=== PATIENT | female | born 1950 | race Caucasian/White ===

== ENCOUNTER 2019-03-23 11:33 | Emergency (ER) | payer MEDICARE, OTHER ==
[2019-03-23] MEDS ORDERED: predniSONE TAB* 20 MG PO ONE (12:26)
[2019-03-23] MEDS ORDERED: Albuterol/Ipratropium NEB.SOL* Albuterol 2.5 MG/Ipratropium 0.5 MG 3 ML INH ONE (12:26)
--- NOTE | 2019-03-23 12:26 | ED ---
Respiratory - HPI Summary HPI Summary: This patient is a 68 year old F presenting to ED with a chief complaint of sore throat that has developed into a cough with thick yellow mucus with a speck of blood since a week ago. She is visiting from [place]. The patient rates the pain 0/ 10 in severity. Symptoms aggravated by nothing. Symptoms alleviated by nothing. Patient reports YOUNGBLOOD, lightheadedness, SOB, pain on swallowing. Patient denies CP , N/V/D, fever. - History of Current Complaint Chief Complaint: EDUpperRespComplaint Stated Complaint: CHECK BREATHING PER PT Time Seen by Provider: 03/23/19 12:11 Hx Obtained From: Patient Onset/Duration: Gradual Onset, Lasting Weeks - 1 week, Still Present, Worse Since Timing: Constant Initial Severity: Mild Current Severity: Mild Pain Intensity: 0 Character: Cough (Productive), Dyspnea on Exertion Sputum Amount: Large Sputum Color: Yellow Aggravating Factor(s): Nothing Alleviating Factor(s): Nothing Associated Signs and Symptoms: Negative - CP, N/V/D, fever, SOB - Allergy/Home Medications Allergies/Adverse Reactions: Allergies Allergy/AdvReac Type Severity Reaction Status Date / Time No Known Allergies Allergy Verified 03/23/19 11:57 Home Medications: Home Medications Albuterol 2.5MG/3ML (0.083%)* [Ventolin 2.5 MG/3 ML NEB.EVANGELIST*] 2.5 mg INH Q4H PRN 03/23/19 [History Confirmed 03/23/19] Albuterol inh POWDER (NF) [Proair Respiclick] 2 puff INH Q4H PRN 03/23/19 [ History Confirmed 03/23/19] Aspirin [Aspirin EC] 81 mg PO DAILY 03/23/19 [History Confirmed 03/23/19] DULoxetine DR CAP* [Cymbalta CAP*] 20 mg PO DAILY 03/23/19 [History Confirmed ] Fluticasone/Vilanterol MDI(NF) [Breo Ellipta MDI (NF)] 1 puff INH DAILY [History Confirmed 03/23/19] Lisinopril/HCTZ (NF) [Zestoretic (NF)] 1 tab PO DAILY 03/23/19 [ History Confirmed 03/23/19] Loratadine [Claritin] 10 mg PO DAILY 03/23/19 [History Confirmed 03/23/19] Metoprolol Tartrate TAB* [Lopressor TAB*] 100 mg PO BID 03/23/19 [History Confirmed 03/23/19] Rosuvastatin Calcium [Crestor] 10 mg PO DAILY 03/23/19 [History Confirmed ] PMH/Surg Hx/FS Hx/Imm Hx Cardiovascular History: Reports: Hx Hypertension, Hx Supraventricular Ventricular Tachycardia Respiratory History: Reports: Hx Asthma - Surgical History Surgery Procedure, Year, and Place: cataracts, defibrillator, dental Infectious Disease History: No Infectious Disease History: Denies: Traveled Outside the US in Last 30 Days - Family History Known Family History: Positive: Hypertension, Other - lung CA, breast CA - Social History Alcohol Use: Weekly Hx Substance Use: No Substance Use Type: Reports: None Hx Tobacco Use: No Smoking Status (MU): Never Smoked Tobacco Review of Systems Negative: Fever ENT: Other - Pain on swallowing Positive: Sore Throat Positive: Shortness Of Breath, Cough - Wet Negative: Vomiting, Diarrhea, Nausea Neurological: Other - Lightheadedness Positive: Headache All Other Systems Reviewed And Are Negative: Yes Physical Exam - Summary Physical Exam Summary: GENERAL: Patient is a well-developed and nourished F who is lying comfortable in the stretcher. Patient is not in any acute respiratory distress. HEAD AND FACE: Normocephalic EYES: PERRLA, EOMI x 2. EARS: Hearing grossly intact. MOUTH: Oropharynx within normal limits. NECK: Supple, trachea is midline, no adenopathy, no JVD, no carotid bruit. CHEST: Symmetric, no tenderness at palpation LUNGS: Mild expiratory wheezing with rhonchi CVS: Regular rate and rhythm, S1 and S2 present, no murmurs or gallops appreciated. ABDOMEN: Soft, non-tender. Bowel sounds are normal. No abnormal abdominal pulsations. EXTREMITIES: Full ROM in all major joints, no edema, no cyanosis or clubbing. NEURO: Alert and oriented x 3. No acute neurological deficits. Speech is normal and follows commands. SKIN: Dry and warm Triage Information Reviewed: Yes Vital Signs On Initial Exam: Initial Vitals Temp Pulse Resp BP Pulse Ox 99.2 F 82 18 198/125 94 03/23/19 11:53 03/23/19 11:53 03/23/19 11:53 03/23/19 11:53 03/23/19 11:53 Vital Signs Reviewed: Yes Diagnostics - Vital Signs Vital Signs Temp Pulse Resp BP Pulse Ox 03/23/19 11:53 99.2 F 82 18 198/125 94 - Laboratory Result Diagrams: 03/23/19 12:21 03/23/19 12:21 Lab Statement: Any lab studies that have been ordered have been reviewed, and results considered in the medical decision making process. - Radiology CXR Radiology Interpretation Completed By: Radiologist Summary of Radiographic Findings: Calcified granuloma left lung base. Pacemaker leads are in place. Hyperinflated lung bowen. Dr. Moreau has reviewed this radiology report. Re-Evaluation - Re-Evaluation First Eval Re-Evaluation Time: 13:27 Comment: Discussed results with patient. Patient will be discharged home with dx of asthmatic exacerbation and calcified granuloma of left lung. Patient understands and agrees with this plan. Disposition - Course Course Of Treatment: This patient is a 68 year old F presenting to ED with a chief complaint of sore throat that has developed into a cough with thick yellow mucus with a speck of blood since a week ago. In the ED course, patient received Duoneb, Deltasone, Zithromax. Blood work obtained. CXR revealed calcified granuloma left lung base. Pacemaker leads are in place. Hyperinflated lung bowen. Patient will be discharged home with dx of asthmatic exacerbation and calcified granuloma of left lung. I discussed results with patient, and she reports feeling better. She is hemodynamically stable and safe for discharge. Strict return precautions given and she will otherwise follow up with her PCP. - Diagnoses Provider Diagnoses: Asthma exacerbation, Calcified granuloma of lung Discharge - Sign-Out/Discharge Documenting (check all that apply): Patient Departure - Discharge Patient Received Moderate/Deep Sedation with Procedure: No - Discharge Plan Condition: Stable Disposition: HOME Prescriptions: Azithromycin 500 mg PO DAILY #4 tablet predniSONE [Deltasone 20 MG TAB] 40 mg PO DAILY #8 tablet Patient Education Materials: Asthma (ED), How Your Lungs Work (ED) Referrals: [facility] [Outside] - 3 Days Additional Instructions: Use your Albuterol 3xdaily for the next two days. Follow up with your primary care physician in 1-3 days regarding your cough and calcified granuloma of the left lung. RETURN TO THE EMERGENCY DEPARTMENT FOR CHANGING OR WORSENING SYMPTOMS. - Billing Disposition and Condition Condition: STABLE Disposition: Home - Attestation Statements Document Initiated by Scribe: Yes Documenting Scribe: Neil Zavaleta Provider For Whom Steveibe is Documenting (Include Credential): Francisco J Moreau MD Scribe Attestation: INeil, scribed for Francisco J Moreau MD on 03/24/19 at 1047. Scribe Documentation Reviewed: Yes Provider Attestation: The documentation as recorded by the steveibNeil aguilera accurately reflects the service I personally performed and the decisions made by me, Francisco J Moreau MD Status of Scribe Document: Viewed
[2019-03-23] MEDS ORDERED: Azithromycin TAB* 250 MG PO ONE (12:27)
[2019-03-23 12:28] LABS: ABS Eosinophils 0.1 10^3/ul (0-0.6); ABS Lymphocytes 0.9 10^3/ul (1.0-4.8); ABS Monocytes 0.7 10^3/ul (0-0.8); ABS Neutrophils 3.8 10^3/ul (1.5-7.7); Eosinophil % 2.2 %; Hematocrit 43 % (35-47); Hemoglobin 14.8 g/dL (12.0-16.0); Lymphocyte % 15.9 %; Mean Corpuscular HGB Conc 34 g/dL (31-36); Mean Corpuscular Hemoglobin 28 pg (27-31); Mean Corpuscular Volume 84 fL (80-97); Mean Platelet Volume 7.2 fL (7.4-10.4); Platelet Count 149 10^3/uL (150-450); Red Cell Distribution Width 15 % (10-15); White Blood Count 5.6 10^3/uL (3.5-10.8)
[2019-03-23 12:46] LABS: Rapid Strep Molecular Negative (Negative)
[2019-03-23 12:46] LABS: Albumin 4.4 g/dL (3.2-5.2); Albumin/Globulin Ratio 1.6 (1-3); BUN/Creatinine Ratio 15.8 (8-20); C Reactive Protein 3.71 mg/L (<8.01); Calcium 9.7 mg/dL (8.6-10.3); EGFR African American 70.8 (>60); EGFR Non-African American 58.5 (>60); Globulin 2.7 g/dL (2-4); Potassium 3.6 mmol/L (3.5-5.0); Total Bilirubin 1.8 mg/dL (0.2-1.0); Total Protein 7.1 g/dL (6.4-8.9)
[2019-03-23 14:10] VITALS: BP 154/78
== END 2019-03-23 14:09 | disposition home or self-care (01) ==
LOC: ED 11:33
DX: J45.901 Unspecified asthma with (acute) exacerbation (principal); J84.10 Pulmonary fibrosis, unspecified; R51 Headache; R42 Dizziness and giddiness; R07.0 Pain in throat; I10 Essential (primary) hypertension; Z79.82 Long term (current) use of aspirin; Z95.810 Presence of automatic (implantable) cardiac defibrillator
CPT/HCPCS: 36415; 71046; 80053; 83605; 83690; 85025; 86140; 87040; 87651; 99283; A9270-GY; J7512

== ENCOUNTER 2019-03-25 11:23 | Observation (INO) | payer MEDICARE ==
[2019-03-25] MEDS ORDERED: Albuterol/Ipratropium NEB.SOL* Albuterol 2.5 MG/Ipratropium 0.5 MG 3 ML INH ONE ×2 (11:58→12:54)
[2019-03-25] MEDS ORDERED: Magnesium Sulfate 2 GM IV* 2 GM/50 ML BAG IVPB ONE (12:54)
[2019-03-25] MEDS ORDERED: methylPREDNISolone 125 MG* 2 ML VIAL IV ONE (12:54)
--- NOTE | 2019-03-25 12:56 | ED ---
Asthma - HPI Summary HPI Summary: Patient is a 68-year-old female who presents emergency department for ongoing cough and wheeze 3-4 days. Patient states she is visiting her family and I think for the week and since she has been here she has been having cough and wheeze. She notes a history of asthma. Patient was seen in the ER 2 days ago and had chest x-ray and blood work done. Chest x-ray showed no pneumonia and a granuloma. Patient was on prednisone and azithromycin. Patient states that her cough improved but she still feeling wheezy. Patient states she has a nebulizer with her and has one albuterol treatment left. Patient states she caught her family doctor at home today but family doctor would not prescribe her more albuterol without seeing her. Patient denies fever, chest pain, abdominal pain. Symptoms are moderate in severity. No current modifying factors. - History of Current Complaint Chief Complaint: EDAsthma Stated Complaint: ASTHMA PER PT Time Seen by Provider: 03/25/19 11:53 Hx Obtained From: Patient Pain Intensity: 0 - Allergy/Home Medications Allergies/Adverse Reactions: Allergies Allergy/AdvReac Type Severity Reaction Status Date / Time No Known Allergies Allergy Verified 03/23/19 11:57 PMH/Surg Hx/FS Hx/Imm Hx Previously Healthy: Yes Cardiovascular History: Reports: Hx Hypertension Respiratory History: Reports: Hx Asthma - Surgical History Surgery Procedure, Year, and Place: cataracts, defibrillator, dental Infectious Disease History: No Infectious Disease History: Denies: Traveled Outside the US in Last 30 Days - Family History Known Family History: Positive: Hypertension, Other - lung CA, breast CA - Social History Occupation: Retired Lives: With Family Alcohol Use: Weekly Hx Substance Use: No Substance Use Type: Reports: None Hx Tobacco Use: No Smoking Status (MU): Never Smoked Tobacco Review of Systems Constitutional: Negative Negative: Fever, Chills Eyes: Negative ENT: Negative Cardiovascular: Negative Negative: Palpitations, Chest Pain Positive: Shortness Of Breath, Cough Gastrointestinal: Negative Negative: Abdominal Pain, Vomiting, Diarrhea Neurological: Negative All Other Systems Reviewed And Are Negative: Yes Physical Exam Triage Information Reviewed: Yes Vital Signs On Initial Exam: Initial Vitals Temp Pulse Resp BP Pulse Ox 96.8 F 81 20 201/128 93 03/25/19 11:23 03/25/19 11:23 03/25/19 11:23 03/25/19 11:23 03/25/19 11:23 Vital Signs Reviewed: Yes Appearance: Positive: Well-Appearing - Pt. sitting up in bed in NAD. Appears uncomfortable and tired. Skin: Positive: Warm, Dry Head/Face: Positive: Normal Head/Face Inspection Eyes: Positive: Normal, EOMI ENT: Positive: Pharynx normal, TMs normal Neck: Positive: Supple Respiratory/Lung Sounds: Positive: Other - Diffuse expiratory and inspiratory wheezes throughout. Mild accessory muscle use. Cardiovascular: Positive: Normal, RRR Musculoskeletal: Positive: Normal, Strength/ROM Intact Neurological: Positive: Normal, CN Intact II-III Psychiatric: Positive: Affect/Mood Appropriate Diagnostics - Vital Signs Vital Signs Temp Pulse Resp BP Pulse Ox 03/25/19 12:29 64 147/91 92 03/25/19 12:09 63 16 98 03/25/19 12:01 69 93 03/25/19 11:59 67 181/114 92 03/25/19 11:23 96.8 F 81 20 201/128 93 - Laboratory Result Diagrams: 03/25/19 13:11 03/25/19 13:11 Lab Statement: Any lab studies that have been ordered have been reviewed, and results considered in the medical decision making process. Asthma Course/Dx - Course Course Of Treatment: Pt. presenting with worsening wheezing. She is afebrile. O2 saturation 93% on RA . Pt. started on a duoneb treatment. Pt. re-examined after breathing treatment and she has had little improvement. Will given another tx, iv mag, solumedrol, and basic labs. Pt. ambulated after medication and O2 dropped to 87%. Placed on 2L NC. Pt. still wheezing. Will admit for hypoxia secondary to asthma exacerbation. I spoke with Dr. Espinosa and she excepts pt. for admission. - Diagnoses Differential Diagnosis/HQI/PQRI: Positive: Anaphylaxis, Acute Asthma, Bronchitis , COPD Excerbation, Pneumonia, Reactive Airway Disease Provider Diagnoses: Asthma exacerbation, Hypoxia Discharge - Sign-Out/Discharge Documenting (check all that apply): Patient Departure Patient Received Moderate/Deep Sedation with Procedure: No - Discharge Plan Condition: Stable Disposition: ADMITTED TO [facility] Referrals: No Primary Care Phys,NOPCP [Primary Care Provider] - - Billing Disposition and Condition Condition: STABLE Disposition: Admitted to [facility]
[2019-03-25 13:17] LABS: ABS Lymphocytes 0.9 10^3/ul (1.0-4.8); ABS Monocytes 0.7 10^3/ul (0-0.8); Eosinophil % 0.2 %; Hematocrit 42 % (35-47); Hemoglobin 14.7 g/dL (12.0-16.0); Lymphocyte % 8.4 %; Mean Corpuscular HGB Conc 35 g/dL (31-36); Mean Corpuscular Hemoglobin 29 pg (27-31); Mean Corpuscular Volume 84 fL (80-97); Mean Platelet Volume 7.6 fL (7.4-10.4); Platelet Count 173 10^3/uL (150-450); Red Blood Count 5.05 10^6 /uL (3.70-4.87); Red Cell Distribution Width 14 % (10-15); White Blood Count 10.6 10^3/uL (3.5-10.8)
[2019-03-25 13:35] LABS: Albumin 4.2 g/dL (3.2-5.2); Albumin/Globulin Ratio 1.6 (1-3); BUN/Creatinine Ratio 21.4 (8-20); C Reactive Protein 1.67 mg/L (<8.01); Calcium 9.5 mg/dL (8.6-10.3); EGFR African American 68.3 (>60); EGFR Non-African American 56.4 (>60); Globulin 2.7 g/dL (2-4); Potassium 3.7 mmol/L (3.5-5.0); Total Bilirubin 1.1 mg/dL (0.2-1.0); Total Protein 6.9 g/dL (6.4-8.9)
[2019-03-25] MEDS ORDERED: Acetaminophen TAB* 325 MG PO PRN (16:29)
[2019-03-25] MEDS ORDERED: Albuterol/Ipratropium NEB.SOL* Albuterol 2.5 MG/Ipratropium 0.5 MG 3 ML INH PRN (16:29)
[2019-03-25] MEDS ORDERED: NS 0.9% 1000 ML** 1,000 ML IV SCH (16:30)
[2019-03-25] MEDS ORDERED: Albuterol HFA INHALER* 8 gm MDI INH PRN (16:34)
[2019-03-25] MEDS ORDERED: Enoxaparin(*) 40 MG/0.4 ML SYR SUBCUT SCH (18:00)
[2019-03-25] MEDS: Metoprolol Tartrate TAB* 100 MG TAB PO SCH (19:58)
--- NOTE | 2019-03-25 20:45 | HP ---
CC: Dr. Florencia Osborn * HISTORY AND PHYSICAL: DATE OF ADMISSION: 03/25/19 PRIMARY CARE PROVIDER: Dr. Florencia Osborn, [place], [place]. ATTENDING PHYSICIAN: Dr. Renata Donald * (dictated by MAHESH Miller). CHIEF COMPLAINT: Shortness of breath. HISTORY OF PRESENT ILLNESS: Ms. Flaherty is a 68-year-old female with a past medical history of hypertension, hyperlipidemia and asthma who presented to the ER on Monday with complaints of sore throat, shortness of breath, productive cough and wheeze. She states that she had been taking her regular inhalers, which include ProAir rescue inhaler, Breo Ellipta and albuterol nebulizer, but believes that the heat caused the flare-up of her asthma. She came to the ER for further evaluation. She was discharged from the ER with prednisone and azithromycin. Upon leaving the ER, she reports she felt better. She reports she temporarily improved, but slowly worsened. When she started to use her home albuterol nebulizer, she noticed that it had not worked. She believes that this medication is greater than 2 years old and it appears to be pediatric dosing. Due to worsening of symptoms, the patient returned to the ER today. She complained of productive cough, wheeze, shortness of breath and weakness. She states that all of these are resolved with treatment in the ER. She denies chest pain, abdominal pain and vision changes. She does complain of intermittent headache. She denies shortness of breath at rest, but appears to have some dyspnea with activity. While in the ER, the patient received a full workup, which included laboratory workup revealing mild elevation in creatinine, mild elevation in bilirubin. She was given DuoNebs x2, magnesium sulfate 2 g IV, prednisone 125 mg. The hospitalist team was asked to evaluate the patient for admission. PAST MEDICAL HISTORY: 1. Hypertension. 2. Hyperlipidemia. 3. SVT; defibrillator in place. 4. Asthma. 5. Depression. PAST SURGICAL HISTORY: Bilateral cataracts, defibrillator, dental work including root canal crowns, D and C. HOME MEDICATIONS: 1. Albuterol 2.5-3 inhalation q.4 hours p.r.n. shortness of breath. 2. ProAir RespiClick 2 puffs inhalation q.2 hours p.r.n. shortness of breath. 3. Aspirin 81 mg p.o. daily. 4. Duloxetine DR 20 mg p.o. daily. 5. Fluticasone/vilanterol MDI 1 puff inhalation daily. 6. Lisinopril/HCTZ 20/25 1 tab p.o. daily. 7. Loratadine 10 mg p.o. daily. 8. Metoprolol tartrate 100 mg p.o. b.i.d. 9. Rosuvastatin 10 mg p.o. daily. 10. Azithromycin 500 mg p.o. daily. 11. Prednisone 40 mg p.o. daily. DRUG ALLERGIES: No known drug allergies. FAMILY HISTORY: Hypertension, mother, sister, brother. Father at age 54 of lung cancer, he was a smoker. Mother and sister had breast cancer. The patient believes his brother had prostate cancer. Paternal grandfather had ME. No family history of diabetes mellitus or CVA. SOCIAL HISTORY: The patient does not smoke. She notes that she tried it in college, but never developed a habit. She drinks approximately 1 bottle of wine per week. 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 She lives in [place], [place]. She is . She lives with her boyfriend. In the event that she is unable to make her own medical decisions, she has appointed her sister, , phone number [phone], to be her surrogate decision maker. REVIEW OF SYSTEMS: A 10-point review of systems has been performed and all the pertinent positives and negatives are in the HPI. All other systems are negative. PHYSICAL EXAMINATION GENERAL: Ms. Flaherty is a well-developed, well-nourished obese 68-year- old white female who is sitting at the edge of her bed. She has nasal cannula oxygen in place, but appears to be breathing comfortably, otherwise. She is in no acute distress. She is able to answer in full sentences. She is pleasant and cooperative. VITAL SIGNS: Temperature 96.8 temporal, heart rate 73, respiratory rate 16, oxygen saturation 94% on 2 L oxygen, blood pressure 169/103. HEENT: PERRL, EOMI, nonicteric sclerae. Hearing grossly intact. Oral mucous membranes are dry. There are no lesions. The pharynx is clear. RESPIRATORY: Symmetrical chest expansion. There is no use of accessory muscles. The patient has decreased breath sounds bilaterally. There are scattered rhonchi and diffuse inspiratory and expiratory wheezing. There are no rales. CARDIOVASCULAR: S1, S2 present. Regular rate and rhythm without murmurs, rubs , clicks or gallops. There is no JVD. ABDOMEN: Bowel sounds noted in all quadrants. The abdomen is soft without tenderness to palpation. MUSCULOSKELETAL: The patient is able to move all of her extremities. There is no pain or deformities. NEURO: The patient is awake. She is alert and oriented x3. Cranial nerves are grossly intact. Able to move all of her extremities. SKIN: Warm and dry bilaterally. There is no clubbing or cyanosis. There is no edema. Radial and pedal pulses are palpable. DIAGNOSTIC STUDIES/LAB DATA: CBC without gross abnormality. Creatinine 0.98, BUN/creatinine 21.4, glucose 134, total bilirubin 1.0. Chest x-ray, 03/23/19. Impression: Calcified granuloma left lung base. Pacemaker leads are in place. Hyperinflated lung bowen. ASSESSMENT AND PLAN: Ms. Flaherty is a 68-year-old female with a past medical history of asthma who presented to the ER today with complaints of productive cough, shortness of breath and wheezing. The patient is presumed to be in asthma exacerbation. The patient will be admitted in observation for: 1. Asthma exacerbation. The patient was in the ER on 03/23/19 for asthma exacerbation. She was discharged on prednisone and azithromycin. She improved somewhat, but then started to decline. This could be due to the fact that her nebulizer prescription is possibly and appears to be pediatric dose. In any event, the patient will be admitted for observation overnight. She received 1 dose of IV Solu-Medrol in the ER. She will be continued on prednisone 60 mg p.o. starting tomorrow. She is currently on 2 L of oxygen and saturating well. We will wean her off her oxygen. She will get DuoNebs q.4 hours while awake. We will continue her Breo daily and ProAir p.r.n. The patient needs refill of albuterol nebulizer at discharge. 2. Left lower lobe calcified granuloma. This is noted on chest x-ray from . The patient will follow up with her primary care provider regarding this. 3. Asthma. See above. Continue Breo and ProAir DuoNebs q.4 hours around the clock while awake. 4. Hypertension. Continue lisinopril/HCTZ, metoprolol. 5. Hyperlipidemia. Continue her simvastatin. 6. Supraventricular tachycardia. Defibrillator in place. 7. Depression. Continue Duloxetine. 8. FEN. The patient will be placed on 1 L IV fluids due to dry oral mucosa and mildly elevated creatinine. She has been ordered a heart-healthy diet. 9. DVT prophylaxis. According to DVT Risk Assessment, the patient scores 2, placing her at moderate risk. Lovenox has been ordered. 10. Code status. Full code. TIME SPENT: Approximately 60 minutes were spent on this admission, greater than half of that time was spent with the patient obtaining history, performing physical, and reviewing the plan of care. The case has been reviewed with my attending, Dr. Donald, who is in agreement with the plan of care. MAHESH STEPHENS [id number]/CPS #: [id number] MTDD
[2019-03-26 07:12] LABS: Calcium 8.8 mg/dL (8.6-10.3); EGFR African American 91.6 (>60); EGFR Non-African American 75.7 (>60); Potassium 3.8 mmol/L (3.5-5.0)
[2019-03-26] MEDS ORDERED: Cetirizine* 10 MG TAB PO SCH (09:00)
[2019-03-26] MEDS ORDERED: Hydrochlorothiazide TAB* 25 MG PO SCH (09:00)
[2019-03-26] MEDS ORDERED: Lisinopril TAB* 10 MG PO SCH (09:00)
[2019-03-26] MEDS: Metoprolol Tartrate TAB* 100 MG TAB PO SCH (09:00)
[2019-03-26] MEDS ORDERED: NFT: Fluticasone/Vilanterol MDI(NF) 100/25 MDI INH SCH (09:00)
[2019-03-26] MEDS ORDERED: Aspirin EC TAB* 81 MG TAB.EC PO SCH (09:00)
[2019-03-26] MEDS ORDERED: DULoxetine DR CAP* 20 MG CAP.DR PO SCH (09:00)
[2019-03-26] MEDS ORDERED: predniSONE TAB* 20 MG PO SCH (09:00)
[2019-03-26] MEDS ORDERED: Atorvastatin* 20 MG TAB PO SCH (09:00)
[2019-03-26 11:17] VITALS: BP 163/101
--- NOTE | 2019-03-26 22:52 | DS ---
CC: Dr. Florencia Osborn, [place], [place] * DISCHARGE SUMMARY: DATE OF ADMISSION: 03/25/19 DATE OF DISCHARGE: 03/26/19 PRIMARY CARE PROVIDER: Dr. Florencia Osborn, [place], [place]. ATTENDING PHYSICIAN: Dr. Renata Donald * (dictated by MAHESH Miller). PRIMARY DIAGNOSIS: Asthma exacerbation. SECONDARY DIAGNOSES: 1. Hypertension. 2. Hyperlipidemia. 3. Asthma. 4. Supraventricular tachycardia, status post defibrillator. 5. Depression. CONSULTATIONS WHILE IN THE HOSPITAL: None. PROCEDURES WHILE IN THE HOSPITAL: None. STUDIES WHILE IN THE HOSPITAL: None. DISCHARGE MEDICATIONS: Home Medications: 1. Albuterol inhaler powder 2 puffs inhalation q.4 hours p.r.n. shortness of breath. 2. Aspirin 81 mg p.o. daily. 3. Duloxetine 20 mg p.o. daily. 4. Fluticasone/vilanterol MDI 1 puff inhalation daily. 5. Lisinopril/HCTZ 20/25 one tab p.o. daily. 6. Loratadine 10 mg p.o. daily. 7. Metoprolol tartrate 100 mg p.o. b.i.d. 9. Rosuvastatin 10 mg p.o. daily. [place] Medications: 1. Prednisone 60 mg p.o. daily x4. 2. Albuterol/ipratropium nebulizer solution 1 neb inhalation q.4 hours p.r.n. shortness of breath/wheeze. HISTORY OF PRESENT ILLNESS/HOSPITAL COURSE: Ms. Flaherty is a 68-year-old female with a past medical history of hypertension, hyperlipidemia, asthma, SVT , who presented to the ER twice in the last three days with complaints of shortness of breath and was found to be in asthma exacerbation. Please see the history and physical dictated by Kate Swift on 03/25/19 for a complete summary of events leading up to the hospitalization, but in short, Ms. iCrilo Berkowitz was prescribed azithromycin and prednisone for asthma exacerbation on . She then returned due to continued exacerbation despite use of home prescription of nebulizer solution. She was admitted to the hospital for continued DuoNebs q.4 hours while awake and continued prednisone and for observation. The following day, the patient was eager to be discharged. She was noted to have an elevated creatinine on admission, which is improved with gentle IV hydration. The patient was requiring oxygen at admission, but is no longer requiring oxygen. She feels that she is not wheezing. She does not feel short of breath. She is able to walk without dyspnea. She again is eager to be discharged. She denies chest pain, dyspnea, cough, fever, or chills. She denies headaches, dizziness, or lightheadedness. She denies abdominal pain , nausea, vomiting, diarrhea, or constipation. Ms. Flaherty will be discharged to home. REVIEW OF SYSTEMS: A 10-point review of systems has been performed and all the pertinent positives and negatives are in the HPI. All other systems are negative. PHYSICAL EXAMINATION: Vital Signs: Temperature 98.1, oral; heart rate 66; respiratory rate 20; oxygen saturation 92% on room air; blood pressure 163/101. General: Ms. Flaherty is a well-developed, well-nourished, obese, 68-year- old white female who is sitting up in bed. She is breathing comfortably. She is speaking full sentences. She is in no acute respiratory distress. HEENT: PERRL. Nonicteric sclerae. Hearing grossly intact. Oral mucous membranes are moist without lesions. Oropharynx is clear. Cardiovascular: Regular rate and rhythm with S1, S2, present without murmurs, rubs, clicks, or gallops. There is no peripheral edema. Radial and pedal pulses are palpable. Pulmonary: Symmetrical chest expansion without use of accessory muscles. There is good air exchange bilaterally. There is expiratory wheezing throughout the lungs that has significantly reduced from previous exam. Abdomen: Bowel sounds noted in all quadrants. The abdomen is soft without tenderness to palpation. Musculoskeletal: Full range of motion without pain or deformities. Steady gait without impairment. Neurological: Alert and oriented x3. Cranial nerves grossly intact. Equal strength in upper and lower extremities. Steady gait without impairment. DISCHARGE PLAN: Ms. Flaherty will be discharged to home. ACTIVITY: As tolerated. DIET: Heart healthy. MEDICATIONS: 1. Prednisone 60 mg p.o. daily x4 days. 2. Albuterol nebulizer solution 1 neb q.4 hours p.r.n. shortness of breath or wheeze. EDUCATION: 1. Follow up with primary care provider in 4 to 7 days. Discussed recent chest x- ray findings of left lower lobe calcified granuloma, discussed recent hospitalization. 2. Return to the ER or nearest hospital if symptoms return or worsen. Return if you experience chest pain, shortness of breath, dizziness, lightheadedness, loss of consciousness, high fevers, chills, night sweats, or any other worrisome signs or symptoms. This is a summarized report of a complex medical history and hospital stay. For further details, please see the entire medical record. TIME SPENT: Approximately 35 minutes was spent on this discharge, greater than half that time was spent [id number] with the patient discussing discharge plans and instructions. MAHESH STEPHENS [id number]/[facility] #: [id number] MTDD
== END 2019-03-26 12:15 | disposition home or self-care (01) ==
LOC: ED 11:23 → MED 16:29
PROVIDERS: ADMIT Internal Medicine; ATTEND Internal Medicine
DX: J45.901 Unspecified asthma with (acute) exacerbation (principal); I10 Essential (primary) hypertension; E78.5 Hyperlipidemia, unspecified; J45.909 Unspecified asthma, uncomplicated; I47.1 Supraventricular tachycardia; Z95.810 Presence of automatic (implantable) cardiac defibrillator; F32.9 Major depressive disorder, single episode, unspecified; Z79.82 Long term (current) use of aspirin; Z79.899 Other long term (current) drug therapy
CPT/HCPCS: 36415; 80048; 80053; 83605; 85025; 86140; 94640; 94660; 96365; 96375; 99284; A9270-GY; G0378; J1650; J2930; J3475; J7512